=== PATIENT | male | born 1965 | race Caucasian/White ===

== ENCOUNTER 2017-02-04 22:04 | Emergency (ER) | payer OTHER ==
[~2017-02-04] VITALS: Ht 171.4 cm; Wt 148.0 kg
[2017-02-04 22:11] VITALS: BP 167/105; PULSE 86; RESP 16; TEMP 98.5; O2SAT 98
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
== END 2017-02-04 23:08 | disposition home or self-care (01) ==
LOC: PHEFT 22:04
DX: R51 Headache (principal); V43.52XA Car driver injured in collision with other type car in traffic accident, initial encounter
CPT/HCPCS: 99283